=== PATIENT | female | born 2000 | race Caucasian/White ===

== ENCOUNTER 2023-10-25 21:01 | Inpatient (IN) | payer OTHER ==
[~2023-10-25] VITALS: Ht 165.1 cm; Wt 58.8 kg
[2023-10-26] VITALS (9 sets, daily range): BP systolic 143–180; BP diastolic 72–94; TEMP 97.5–99; O2SAT 97–99
[2023-10-26] MEDS: NS 1,000 ML IV ONE (06:51)
[2023-10-26 07:00] LABS: VENOUS PARTIAL PRESSURE CO2 36.8 mmHg (38.0-50.0); VENOUS PARTIAL PRESSURE O2 57.1 mmHg (30.0-50.0); VENOUS PH 7.218 UNITS (7.330-7.430); VENOUS TOTAL CO2 15.8 MMOL/L (24.0-28.0)
[2023-10-26 07:01] LABS: VENOUS BASE EXCESS -12.2 (-2.0-2.0); VENOUS HCO3 14.7 MMOL/L (23.0-27.0); VENOUS O2 SATURATION 86.2 % (60.0-80.0); VENOUS STANDARD HCO3 14.8 MMOL/L
[2023-10-26 07:04] LABS: BASO # 0.1 10^3/uL (0.0-0.2); EOS % 0.2 % (0.0-3.0); HEMATOCRIT 37.8 % (36.0-47.0); HEMOGLOBIN 11.9 g/dl (12.0-15.5); LYMPH # 1.6 10^3/uL (1.5-5.0); LYMPH % 17.4 % (24.0-44.0); MEAN CORPUSCULAR HEMOGLOBIN 24.3 pg (27.0-33.0); MEAN CORPUSCULAR HGB CONC 31.5 g/dl (32.0-36.5); MEAN CORPUSCULAR VOLUME 77.3 fl (80.0-96.0); MONO # 0.7 10^3/uL (0.0-0.8); MONO % 7.5 % (2.0-8.0); NEUTROPHILS # 6.7 10^3/uL (1.5-8.5); NEUTROPHILS % 73.3 % (36.0-66.0); PLATELET COUNT, AUTOMATED 303 10^3/uL (150-450); RED BLOOD COUNT 4.89 10^6/uL (4.00-5.40); WHITE BLOOD COUNT 9.1 10^3/uL (4.0-10.0)
[2023-10-26 07:29] LABS: LIPASE 41 U/L (12-53)
[2023-10-26 07:31] LABS: ALBUMIN 3.5 G/DL (3.2-5.2); ALKALINE PHOSPHATASE 74 U/L (46-116); ALT/SGPT 30 U/L (7.0-40); AST/SGOT 23 U/L (<34); BILIRUBIN,DIRECT < 0.1 MG/DL (<0.4); BILIRUBIN,TOTAL 0.3 MG/DL (0.3-1.2); BLOOD UREA NITROGEN 12 MG/DL (9-23); CALCIUM LEVEL 9.4 MG/DL (8.5-10.1); CARBON DIOXIDE LEVEL 15 MMOL/L (20-31); CHLORIDE LEVEL 99 MMOL/L (98-107); CREATININE FOR GFR 0.53 MG/DL (0.55-1.30); GLOMERULAR FILTRATION RATE > 60.0 (>60); GLUCOSE, FASTING 264 MG/DL (60-100); HCG, SERUM QUALITATIVE NEGATIVE (NEGATIVE); POTASSIUM SERUM 4.5 MMOL/L (3.5-5.1); SODIUM LEVEL 131 MMOL/L (136-145); TOTAL PROTEIN 7.1 G/DL (5.7-8.2)
[2023-10-26 07:44] LABS: HEMOGLOBIN A1c 13.8 % (4.0-6.0)
[2023-10-26 07:49] LABS: ACETONE/KETONE > 4.50 MMOL/L (0.02-0.27)
[2023-10-26] MEDS ORDERED: INSULIN IV RATE CHANGE DOCUMENTATION ML/HR XX SCH ×2 (08:05→09:00)
[2023-10-26] MEDS: INSULIN REGULAR IN 0.9 % NACL 100 UNIT in IV 1 EA IV SCH ×2 (08:31→10:59)
[2023-10-26] MEDS: D5W/0.45% SODIUM CHLORIDE 1,000 ML IV SCH ×2 (08:32→10:57)
[2023-10-26] MEDS ORDERED: MED REC IN PROGRESS XX SCH (09:15)
[2023-10-26] MEDS ORDERED: TRI-1TAB PO (09:37)
[2023-10-26] MEDS ORDERED: HOME MED LIST COMPLETE! XX SCH (09:40)
[2023-10-26] MEDS ORDERED: FLUCONAZOLE 50MG TABLET PO ONE (10:00)
[2023-10-26] MEDS: FLUCONAZOLE 50MG TABLET PO ONE (11:39)
[2023-10-26] MEDS: ENOXAPARIN 40MG/0.4ML SYRINGE (J1650 PER 10MG) SC SCH (11:39)
[2023-10-26 11:45] LABS: BLOOD UREA NITROGEN 9 MG/DL (9-23); CALCIUM LEVEL 8.6 MG/DL (8.5-10.1); CARBON DIOXIDE LEVEL 18 MMOL/L (20-31); CHLORIDE LEVEL 103 MMOL/L (98-107); CREATININE FOR GFR 0.49 MG/DL (0.55-1.30); GLOMERULAR FILTRATION RATE > 60.0 (>60); GLUCOSE, FASTING 187 MG/DL (60-100); MAGNESIUM LEVEL 1.5 MG/DL (1.8-2.4); PHOSPHORUS LEVEL 2.2 MG/DL (2.5-4.9); POTASSIUM SERUM 3.9 MMOL/L (3.5-5.1); SODIUM LEVEL 132 MMOL/L (136-145)
[2023-10-26] MEDS: KCL 40MEQ in NS 1000ML 1,000 ML IV SCH (12:17)
[2023-10-26] MEDS: MAG SULF 1GM/100ML (MAG RUN) 1 GM in IV 1 EA IV SCH (12:17)
[2023-10-26] MEDS: NEUTRA-PHOS 1.5 GM PACKET PO SCH (13:14)
[2023-10-26] MEDS ORDERED: SODIUM PHOSPHATE INJ 30 MMOL in D5W 500 ML IV ONE (14:00)
[2023-10-26 15:55] LABS: BLOOD UREA NITROGEN 7 MG/DL (9-23); CALCIUM LEVEL 8.8 MG/DL (8.5-10.1); CARBON DIOXIDE LEVEL 21 MMOL/L (20-31); CHLORIDE LEVEL 107 MMOL/L (98-107); CREATININE FOR GFR 0.47 MG/DL (0.55-1.30); GLOMERULAR FILTRATION RATE > 60.0 (>60); GLUCOSE, FASTING 205 MG/DL (60-100); MAGNESIUM LEVEL 2.4 MG/DL (1.8-2.4); PHOSPHORUS LEVEL 3.2 MG/DL (2.5-4.9); POTASSIUM SERUM 4.1 MMOL/L (3.5-5.1); SODIUM LEVEL 137 MMOL/L (136-145)
[2023-10-26] MEDS ORDERED: DEXTROSE 50% 50ML SYRINGE IV PRN (16:15)
[2023-10-26] MEDS ORDERED: GLUCAGON INJ 1MG VIAL SC PRN (16:15)
[2023-10-26] MEDS ORDERED: GLUCOSE 4GM CHEW TABLET PO PRN (16:15)
[2023-10-26] MEDS: LEVEMIR (INSULIN DETEMIR) 1 UNITS/0.01ML SC SCH (16:49)
[2023-10-26] MEDS: INSULIN LISPRO (NovoLOG) PER UNIT SC SCH ×2 (17:30→20:26)
[2023-10-26 19:51] LABS: BLOOD UREA NITROGEN 9 MG/DL (9-23); CALCIUM LEVEL 8.4 MG/DL (8.5-10.1); CARBON DIOXIDE LEVEL 21 MMOL/L (20-31); CHLORIDE LEVEL 105 MMOL/L (98-107); CREATININE FOR GFR 0.57 MG/DL (0.55-1.30); GLOMERULAR FILTRATION RATE > 60.0 (>60); GLUCOSE, FASTING 243 MG/DL (60-100); MAGNESIUM LEVEL 1.8 MG/DL (1.8-2.4); PHOSPHORUS LEVEL 3.9 MG/DL (2.5-4.9); POTASSIUM SERUM 4.3 MMOL/L (3.5-5.1); SODIUM LEVEL 135 MMOL/L (136-145)
[2023-10-27] VITALS: BP 130/78; TEMP 97.9; O2SAT 99
[2023-10-27 04:14] VITALS: BP 141/82; TEMP 97.8; O2SAT 99
[2023-10-27 05:32] LABS: ALBUMIN 2.6 G/DL (3.2-5.2); ALKALINE PHOSPHATASE 52 U/L (46-116); ALT/SGPT 19 U/L (7.0-40); AST/SGOT 16 U/L (<34); BILIRUBIN,TOTAL 0.3 MG/DL (0.3-1.2); BLOOD UREA NITROGEN 9 MG/DL (9-23); CALCIUM LEVEL 8.7 MG/DL (8.5-10.1); CARBON DIOXIDE LEVEL 22 MMOL/L (20-31); CHLORIDE LEVEL 107 MMOL/L (98-107); CREATININE FOR GFR 0.51 MG/DL (0.55-1.30); GLOMERULAR FILTRATION RATE > 60.0 (>60); GLUCOSE, FASTING 142 MG/DL (60-100); MAGNESIUM LEVEL 1.7 MG/DL (1.8-2.4); PHOSPHORUS LEVEL 3.6 MG/DL (2.5-4.9); POTASSIUM SERUM 4.2 MMOL/L (3.5-5.1); SODIUM LEVEL 138 MMOL/L (136-145); TOTAL PROTEIN 5.6 G/DL (5.7-8.2)
[2023-10-27] MEDS: MAG SULF 1GM/100ML (MAG RUN) 1 GM in IV 1 EA IV ONE (06:13)
[2023-10-27 08:00] VITALS: BP 145/89; TEMP 99; O2SAT 98
[2023-10-27] MEDS: LEVEMIR (INSULIN DETEMIR) 1 UNITS/0.01ML SC SCH (08:40)
[2023-10-27] MEDS ORDERED: LANC30MI XX (11:35)
[2023-10-27] MEDS ORDERED: PEN-308 SC (11:35)
[2023-10-27] MEDS ORDERED: BLOOKIT21 XX (11:35)
[2023-10-27] MEDS ORDERED: ALCOPAD25 TOP (11:35)
[2023-10-27] MEDS ORDERED: GLUC1TES2 XX (11:35)
[2023-10-27 13:10] VITALS: BP 128/88; TEMP 97.9; O2SAT 98
[2023-10-27 15:15] LABS: CHOLESTEROL LEVEL 176 MG/DL (<200); HDL CHOLESTEROL 58.6 MG/DL (>40); LDL CHOLESTEROL 91.2 MG/DL (<100); NON-HDL-C 117.4 MG/DL; TRIGLYCERIDES LEVEL 131 MG/DL (<150)
[2023-10-27 15:48] LABS: BLOOD UREA NITROGEN 10 MG/DL (9-23); CALCIUM LEVEL 9.3 MG/DL (8.5-10.1); CARBON DIOXIDE LEVEL 25 MMOL/L (20-31); CHLORIDE LEVEL 106 MMOL/L (98-107); CREATININE FOR GFR 0.51 MG/DL (0.55-1.30); GLOMERULAR FILTRATION RATE > 60.0 (>60); GLUCOSE, FASTING 211 MG/DL (60-100); MAGNESIUM LEVEL 1.6 MG/DL (1.8-2.4); PHOSPHORUS LEVEL 3.1 MG/DL (2.5-4.9); POTASSIUM SERUM 4.1 MMOL/L (3.5-5.1); SODIUM LEVEL 136 MMOL/L (136-145)
[2023-10-27 21:11] VITALS: BP 137/91; TEMP 97.7; O2SAT 99
[2023-10-27] MEDS ORDERED: INSUDET SC (21:15)
[2023-10-27] MEDS ORDERED: INSUHUMDS SC ×2 (21:20→21:27)
[2023-10-28 05:42] VITALS: BP 131/81; TEMP 97.5; O2SAT 99
[2023-10-28 07:27] LABS: ALBUMIN 2.6 G/DL (3.2-5.2); ALKALINE PHOSPHATASE 48 U/L (46-116); ALT/SGPT 17 U/L (7.0-40); AST/SGOT 15 U/L (<34); BILIRUBIN,TOTAL 0.2 MG/DL (0.3-1.2); BLOOD UREA NITROGEN 11 MG/DL (9-23); CALCIUM LEVEL 8.4 MG/DL (8.5-10.1); CARBON DIOXIDE LEVEL 25 MMOL/L (20-31); CHLORIDE LEVEL 106 MMOL/L (98-107); CREATININE FOR GFR 0.58 MG/DL (0.55-1.30); GLOMERULAR FILTRATION RATE > 60.0 (>60); GLUCOSE, FASTING 163 MG/DL (60-100); MAGNESIUM LEVEL 1.5 MG/DL (1.8-2.4); PHOSPHORUS LEVEL 4.4 MG/DL (2.5-4.9); POTASSIUM SERUM 4.3 MMOL/L (3.5-5.1); SODIUM LEVEL 139 MMOL/L (136-145); TOTAL PROTEIN 5.6 G/DL (5.7-8.2)
[2023-10-28] MEDS: INSULIN LISPRO (NovoLOG) PER UNIT SC SCH (08:28)
[2023-10-28] MEDS ORDERED: INSUHUMDS SC (12:02)
[2023-10-28] MEDS ORDERED: INSU100I48 SQ (13:37)
[2023-10-28] MEDS ORDERED: HUMA100I14 SC (13:39)
[2023-10-28 14:20] VITALS: BP 135/81; TEMP 97.5; O2SAT 100
== END 2023-10-28 14:45 | disposition home or self-care (01) | DRG 638 ==
LOC: M ED 21:01 → M ED INP 10-26 08:17 → M ICU 10-26 09:05 → M MS5PR 10-27 13:02
PROVIDERS: ADMIT Internal Medicine Pulmonary Disease; ATTEND General Practice
DX: E11.10 Type 2 diabetes mellitus with ketoacidosis without coma (principal); E87.1 Hypo-osmolality and hyponatremia; E83.42 Hypomagnesemia; E83.39 Other disorders of phosphorus metabolism; B37.31 Acute candidiasis of vulva and vagina; D50.9 Iron deficiency anemia, unspecified; Z79.899 Other long term (current) drug therapy

== ENCOUNTER → 2024-03-14 | Outpatient (REF) ==
[~2024-03-14] MED LIST: ALCOPAD25 TOP; BLOOKIT21 XX; GLUC1TES2 XX; HUMA100I14 SC; INSU100I48 SQ; INSUDET SC; INSUHUMDS SC; LANC30MI XX; PEN-308 SC; TRI-1TAB PO
== END ==
LOC: M PLAIMG 08:06
PROVIDERS: ATTEND Internal Medicine
DX: R52 Pain, unspecified (principal)

== ENCOUNTER → 2024-05-09 | Outpatient (CLI) | payer OTHER ==
[~2024-05-09] MED LIST changes: +ISOVUE-300 61% 100ML VIAL As Ordered ONE; +LIDOCAINE 1% MDV 20ML VIAL As Ordered ONE; +PROHANCE 279.3MG/ML 5ML VIAL As Ordered ONE
== END ==
LOC: M RAD 12:27
PROVIDERS: ATTEND Nurse Practitioner Family
DX: M25.511 Pain in right shoulder (principal); S43.401A Unspecified sprain of right shoulder joint, initial encounter; X58.XXXA Exposure to other specified factors, initial encounter; Y92.9 Unspecified place or not applicable
CPT/HCPCS: 23350; 73223; 77002; A9576; Q9967